=== PATIENT | male | born 1940 | race Caucasian/White ===

== ENCOUNTER → 2021-08-26 07:58 | Outpatient (CLI) | payer MEDICARE, OTHER, SELFPAY ==
--- NOTE | 2021-08-26 | DI.ECHO.S_ITS ---
[facility] +---------+ [facility] +---------+ : : [address] : [address] : : : : [id number] : : : : Phone: [phone] +---------+ Echocardiogram Report + + :Name: MOE SO Study Date: 08/26/2021 Height: 74 in : :[facility] ReadingLocation: Weight: 235 lb : : Gender: Male BSA: 2.3 m2 : :: 1940 Age: 81 yrs BP: 127/82 mmHg: :Reason For Study: Atrial fibrillation : :Ordering Physician: : :MOE LOPEZ Performed By: Antonio Trevino : :Referring: MOE LOPEZ : + + Interpretation Summary The left ventricle is normal in size and wall thickness. Left ventricular ejection fraction is estimated to be 55 +/- 5%. There has been no significant change in LVEF since the previous exam. The right ventricle is normal in size and function. Both atria are severely dilated. Both atria have remained unchanged in size since the prior echo exam. There is mild tricuspid regurgitation. Compared to the prior echo exam, there has been no change in TR severity. The right ventricular systolic pressure is estimated to be at least 30 mmHg based on an estimated right atrial pressure of 3 mm Hg. Procedure: A two-dimensional transthoracic echocardiogram with color flow and Doppler was performed. The study quality was technically adequate. Comparison is made with the echocardiogram of 08/10/2017. A contrast injection of Definity was performed to improve assessment of LV function. The patient had a bundle branch block rhythm during the exam. Rhythm is not clear. Left Ventricle: The left ventricle is normal in size and wall thickness. There is no thrombus. Left ventricular ejection fraction is estimated to be 55 +/- 5%. There has been no significant change since the previous exam. There are no focal wall motion abnormalities. Septal motion is consistent with conduction abnormality. Diastolic function could not be accurately assessed due to unobtainable data. Right Ventricle: The right ventricle is normal in size and function. Atria: Both atria are severely dilated. Both atria have remained unchanged in size since the prior echo exam. The interatrial septum grossly appears intact with no obvious evidence for an atrial septal defect. Mitral Valve: The mitral valve leaflets appear mildly thickened, but open well. The mitral valve leaflets are mildly calcified. There is mild mitral annular calcification. There is mild mitral regurgitation. Compared to the prior echo study, there has been no change in the severity of mitral regurgitation. Aortic Valve: The aortic valve is trileaflet. The aortic valve is slightly calcified. There is no aortic valve stenosis. No aortic regurgitation is present. Tricuspid Valve: The tricuspid valve is normal. There is mild tricuspid regurgitation. The right ventricular systolic pressure is estimated to be at least 30 mmHg based on an estimated right atrial pressure of 3 mm Hg. Compared to the prior echo exam, there has been no change in TR severity. Pulmonic Valve: The pulmonic valve is normal in structure and function. There is no pulmonic valvular regurgitation. Great Vessels: The aortic root is normal size. The dimensions of the ascending aorta are normal. The IVC is of normal diameter and collapses greater than 50% with a sniff. This suggests a low right atrial pressure of 3 mm Hg. Pericardium/ Pleura There is no pericardial effusion. There is an anterior echo-free space consistent with a fat pad. There is no pleural effusion. MMode/2D Measurements & Calculations LVIDd: 4.6 cm LVOT diam: 2.0 cm LVIDs: 3.5 cm Ao root diam: 3.8 cm FS: 24.2 % asc Aorta Diam: 3.6 cm IVSd: 1.2 cm LVPWd: 1.1 cm LV duvall. diameter/BSA (cm/m^2): 2.0 LV sys. diameter/BSA (cm/m^2): 1.5 LA dimension: 3.1 cm RA long axis: 6.2 cm LA A2 area: 31.6 cm2 LA A4 area: 29.9 cm2 LA length (vol): 7.1 cm LA vol: 113.6 ml LA vol index: 48.8 ml/m2 LVLs ap4: 6.2 cm LVLd ap2: 8.0 cm LVLs ap2: 6.4 cm TAPSE_phl: 1.9 cm Doppler Measurements & Calculations Ao V2 max: 76.0 cm/sec LVOT Max Emigdio: 63.3 cm/sec Ao V2 mean: 56.1 cm/sec LV V1 max P.6 mmHg Ao max P.0 mmHg LV V1 VTI: 11.5 cm Ao mean P.0 mmHg LYNDA(I,D): 2.7 cm2 Ao V2 VTI: 13.6 cm LYNDA(V,D): 2.6 cm2 sev ratio: 0.85 LYNDA indexed to BSA (cm^2/m^2): 1.1 TR max emigdio: 259.0 cm/sec SV(LVOT): 36.1 ml TR max P.8 mmHg AV VR_phl: 0.83 LYNDA(VTI)/BSA_phl: 1.1 Reading Physician:05:10 PM
== END ==
PROVIDERS: PCP Internal Medicine; Referring Provider Internal Medicine; Visit Provider Internal Medicine
DX: I48.91 Unspecified atrial fibrillation (principal); I08.1 Rheumatic disorders of both mitral and tricuspid valves
CPT/HCPCS: C8929; Q9957

== ENCOUNTER → 2022-12-05 14:18 | Outpatient (CLI) | payer MEDICARE, OTHER, SELFPAY ==
--- NOTE | 2022-12-05 | DI.ECHO.S_ITS ---
[facility] +---------+ [facility] +---------+ : : [address] : [address] : : : : [id number] : : : : Phone: [phone] +[phone]+ Echocardiogram Report + + :Name: MOE SO Study Date: 12/05/2022 Height: 73 in : :[facility] ReadingLocation: Weight: 240 lb : : Gender: Male BSA: 2.3 m2 : :: 1940 Age: 82 yrs BP: 153/98 mmHg: :Reason For Study: Edema : :Ordering Physician: HIEN, : :ROBERTA Performed By: Janet Pedersen : :Referring: ROBERTA STANFORD : + + Interpretation Summary Limited study. Normal left ventricle size with ejection fraction 55%. Severe biatrial enlargement. Mild to moderate mitral regurgitation. Mild tricuspid regurgitation. The right ventricular systolic pressure is estimated to be at least 21 mmHg based on an estimated right atrial pressure of 3 mm Hg. Comparison is made with the echocardiogram of 08/26/2021, mitral regurgitation has worsen. Procedure: A two-dimensional transthoracic echocardiogram with color flow and Doppler was performed in limited views only. The study quality was technically adequate. Comparison is made with the echocardiogram of 08/26/2021. The patient has a paced rhythm. Left Ventricle: The left ventricle is normal in size. Left ventricular ejection fraction is estimated to be 55%. Septal motion is consistent with conduction abnormality. There are no other obvious focal wall motion abnormalities. Atria: There is severe biatrial enlargement. Mitral Valve: The mitral valve leaflets appear mildly thickened, but open well. The mitral valve leaflets are mildly calcified. There is mild to moderate mitral regurgitation. Tricuspid Valve: The tricuspid valve is normal. There is mild tricuspid regurgitation. The right ventricular systolic pressure is estimated to be at least 21 mmHg based on an estimated right atrial pressure of 3 mm Hg. Great Vessels: The IVC is of normal diameter and collapses greater than 50% with a sniff. This suggests a low right atrial pressure of 3 mm Hg. Pericardium/ Pleura There is no pericardial effusion. MMode/2D Measurements & Calculations LVLs ap4: 6.7 cm LVLd ap2: 7.8 cm LVLs ap2: 6.2 cm Doppler Measurements & Calculations TR max kayla: 213.0 cm/sec TR max P.1 mmHg Electronically signed by: Oleg Frias on Reading Physician:12/05/2022 09:05 PM
== END ==
PROVIDERS: PCP Internal Medicine; Referring Provider Physician Assistant Medical; Visit Provider Physician Assistant Medical
DX: R60.9 Edema, unspecified (principal); I08.1 Rheumatic disorders of both mitral and tricuspid valves
CPT/HCPCS: 93307

== ENCOUNTER → 2024-06-22 09:40 | Outpatient (CLI) | payer MEDICARE, OTHER, SELFPAY ==
--- NOTE | 2024-06-22 09:42 | DI.ECHO.S_ITS ---
[facility] +---------+ [facility] : : [address] : [address] : : [id number] : : Phone: [phone] Echocardiogram Report + + :Name: MOE SO Study Date: 06/22/2024 Height: 73 in : :[facility]ospital ReadingLocation: Weight: 242 lb : : Gender: Male BSA: 2.3 m2 : :: 1940 Age: 83 yrs BP: 110/68 mmHg: :Reason For Study: DYSPNEA : :Ordering Physician: Reyna CARRformed By: Ml Hairston : :Referring: ADINA CARR : + + Interpretation Summary There is mild concentric left ventricular hypertrophy. The ejection fraction is estimated to be 50-55%. Diastolic function could not be accurately assessed due to unobtainable data. The right ventricle is mild to moderately dilated. Right ventricular systolic function is mildly reduced. Both atria are severely dilated. There is mild mitral regurgitation. There is mild to moderate tricuspid regurgitation. The right ventricular systolic pressure is estimated to be at least 39 mmHg based on an estimated right atrial pressure of 8 mm Hg. Compared to the prior study 12/05/2022, no major change. Procedure: A two-dimensional transthoracic echocardiogram with color flow and Doppler was performed. The study quality was technically adequate. Comparison is made with the echocardiogram of 12/05/2022. The patient was in sinus rhythm with heart rates between 63-76 bpm during the exam. Left Ventricle: The left ventricle is normal in size. There is mild concentric left ventricular hypertrophy. The ejection fraction is estimated to be 50-55%. Diastolic function could not be accurately assessed due to unobtainable data. Right Ventricle: The right ventricle is mild to moderately dilated. Right ventricular systolic function is mildly reduced. Atria: Both atria are severely dilated. There is no Doppler evidence for an interatrial shunt. Mitral Valve: There is a flat closure plane of the the mitral valve leaflets. The mitral valve leaflets are mildly calcified. There is mild mitral regurgitation. Aortic Valve: The aortic valve is trileaflet. The aortic valve opens well. There is no aortic valve stenosis. There is trace aortic regurgitation. Tricuspid Valve: The tricuspid valve leaflets are thickened and/or calcified, but open well. There is mild to moderate tricuspid regurgitation. The right ventricular systolic pressure is estimated to be at least 39 mmHg based on an estimated right atrial pressure of 8 mm Hg. Pulmonic Valve: The pulmonic valve leaflets are thin and pliable; valve motion is normal. There is a trace or physiologic amount of pulmonic regurgitation. Great Vessels: The aortic root is normal size. The ascending aorta is at the upper limits of normal in size. The IVC is dilated (diameter is greater than 2.1 cm) yet it collapses greater than 50% with a sniff. This suggests a right atrial pressure of 8 mm Hg. Pericardium/ Pleura There is no pericardial effusion. There is no pleural effusion. MMode/2D Measurements & Calculations LVIDd: 4.1 cm LVOT diam: 2.0 cm LVIDs: 2.7 cm Ao root diam: 4.1 cm FS: 33.5 % asc Aorta Diam: 3.8 cm IVSd: 1.2 cm Ao Arch Diam (Prox Trans): 3.2 cm LVPWd: 1.0 cm LV duvall. diameter/BSA (cm/m^2): 1.8 LV sys. diameter/BSA (cm/m^2): 1.2 LA A2 area: 26.9 cm2 RA long axis: 7.3 cm LA A4 area: 33.3 cm2 RA area: 33.0 cm2 LA length (vol): 7.3 cm RA vol: 126.3 ml LA vol: 105.0 ml RA : 54.1 ml/m2 LA vol index: 45.0 ml/m2 IVC diam: 2.1 cm RVD1 (basal): 4.4 cm RVD2 (mid): 3.6 cm TAPSE: 1.7 cm Doppler Measurements & Calculations Ao V2 max: 83.1 cm/sec LVOT Max Emigdio: 66.2 cm/sec Ao V2 mean: 59.4 cm/sec LV V1 max P.8 mmHg Ao max P.8 mmHg LV V1 VTI: 14.5 cm Ao mean P.6 mmHg LYNDA(I,D): 2.6 cm2 Ao V2 VTI: 17.1 cm LYNDA(V,D): 2.4 cm2 sev ratio: 0.84 LYNDA indexed to BSA (cm^2/m^2): 1.1 MV E max emigdio: 70.0 cm/sec TR max emigdio: 280.1 cm/sec MV A max emigdio: 24.5 cm/sec TR max P.4 mmHg MV E/A: 2.9 PA V2 max: 71.9 cm/sec Med Peak E' Emigdio: 12.0 cm/sec PA V2 mean: 44.3 cm/sec E/E' med: 5.8 PA mean P.94 mmHg Lat Peak E' Emigdio: 15.7 cm/sec PA pr(Accel): 48.2 mmHg E/E' lat: 4.5 E/e' average: 5.1 MV dec time: 0.13 sec SV(LVOT): 43.9 ml Reading Physician:08:34 PM
== END ==
PROVIDERS: PCP Internal Medicine; Referring Provider Internal Medicine Cardiovascular Disease; Visit Provider Internal Medicine Cardiovascular Disease
DX: I08.1 Rheumatic disorders of both mitral and tricuspid valves (principal); R06.09 Other forms of dyspnea; Z95.0 Presence of cardiac pacemaker
CPT/HCPCS: 93306